=== PATIENT | female | born 1975 | race Caucasian/White ===

== ENCOUNTER 2019-09-16 07:11 | Emergency (ER) | payer OTHER ==
[~2019-09-16] VITALS: Ht 157.5 cm; Wt 86.0 kg
[2019-09-16] MEDS ORDERED: ONDANSETRON 4MG ODT PO STA (10:54)
[2019-09-16] MEDS ORDERED: KETOROLAC 60MG/2ML VIAL IM STA (10:54)
[2019-09-16 13:35] VITALS: BP 143/80
== END 2019-09-16 13:43 | disposition home or self-care (01) ==
LOC: ER 07:27
DX: S09.8XXA Other specified injuries of head, initial encounter (principal); W10.8XXA Fall (on) (from) other stairs and steps, initial encounter; Y93.89 Activity, other specified; Y92.89 Other specified places as the place of occurrence of the external cause; Y99.8 Other external cause status; I10 Essential (primary) hypertension; Z98.890 Other specified postprocedural states; Z90.710 Acquired absence of both cervix and uterus; Z90.10 Acquired absence of unspecified breast and nipple
CPT/HCPCS: 70450; 96372; 99284; J1885; Q0162